=== PATIENT | male | born 1945 | race Caucasian/White ===

== ENCOUNTER → 2017-06-16 | Outpatient (CLI) | payer MEDICARE ==
[~2017-06-16] VITALS: Ht 180.3 cm; Wt 84.1 kg
[~2017-06-16] MED LIST: CHLORHEXIDINE GLUCONATE 2 % 1 PACK (2 CLOTHS) TOPICAL PRN; DO NOT ADM ANY ANTICOAGULANT DRUGS PRN; INSULIN HUMAN REGULAR 1,000 UNITS/10 ML VIAL SQ PRN; LACTATED RINGER'S 1000 ML IV PRN; LIDOCAINE HCL 1% PF 5 ML SYRINGE OTHER ONE; METOPROLOL TARTRATE 25 MG TAB PO PRN; MIDAZOLAM HCL 5 MG/5 ML VIAL IV ONE; POVIDONE IODINE 5% (ANTISEPSIS KIT) 4 APPLICATIONS EACH NARE PRN; PROPOFOL 200 MG/20 ML AMP IV ONE; SODIUM CHLORID 0.9% 500 ML IV PRN
--- NOTE | 2017-06-16 17:10 | PD.PROCEDR ---
GI Procedure PROCEDURE PERFORMED EUS with FNA INDICATION FOR PROCEDURE Pancreatic mass PROCEDURE: The procedure, risks and benefits were discussed with Mr. Swift and informed consent was obtained. Anesthesia sedated him with Diprivan. He was placed in the left lateral decubitus position. Scopic ultrasound: The Pentax videoscope was introduced through the oropharynx and advanced to the second portion of the duodenum FINDINGS: There was a pancreatic body measuring 3 x 2 cm mildly hypoechoic FNA was performed with good return of no vascular involvement noted The pancreatic duct distal to the mass was dilated proximal to the mass was normal No lymphadenopathy noted Gallbladder was unremarkable Bile duct was also within normal limits No pancreatic head lesion ESTIMATED BLOOD LOSS: None SPECIMENS REMOVED: Pancreatic biopsy COMPLICATIONS: None IMPRESSION: Pancreatic body mass PLAN: Await biopsies Follow up in 2 weeks Quincy Avila MD Jun 16, 2017 17:10
[2017-06-16 18:48] VITALS: BP 170/94; PULSE 60; RESP 16; TEMP 97.9; O2SAT 100
--- NOTE | 2017-06-17 10:20 | EKG ---
Date Performed: 06/16/2017 Time Performed: 13:49:00 PTAGE: 72 years EKG: SINUS BRADYCARDIA BORDERLINE ECG NO PREVIOUS TRACING DOCTOR: Long Solis Interpretating Date/Time 06/17/2017 10:18:49
== END ==
LOC: HSDC 13:06
PROVIDERS: ATTEND Internal Medicine Gastroenterology
DX: K86.89 Other specified diseases of pancreas (principal); R93.3 Abnormal findings on diagnostic imaging of other parts of digestive tract; R94.31 Abnormal electrocardiogram [ECG] [EKG]
CPT/HCPCS: 00731; 43242; 88112; 88305; 93005; J7120

== ENCOUNTER 2017-08-01 07:21 | Day surgery (SDC) | payer MEDICARE ==
[~2017-08-01] VITALS: Ht 180.3 cm; Wt 81.8 kg
[2017-08-01 07:38] VITALS: BP 143/75; PULSE 60; RESP 20; TEMP 98; O2SAT 91
[2017-08-01] MEDS ORDERED: SODIUM CHLORIDE 0.9% 1000 ML IV SCH ×2 (08:15→09:00)
[2017-08-01] MEDS ORDERED: CHLORHEXIDINE GLUCONATE 2 % 1 PACK (2 CLOTHS) TOPICAL SCH ×2 (08:15→09:00)
[2017-08-01] MEDS ORDERED: POVIDONE IODINE 5% (ANTISEPSIS KIT) 4 APPLICATIONS EACH NARE SCH ×2 (08:15→09:00)
[2017-08-01] MEDS ORDERED: VANCOMYCIN 1000 MG/NS 250 ML - implanted port/tunneled catheter IV SCH ×4 (08:15→09:00)
[2017-08-01] MEDS ORDERED: ceFAZolin 2 GM PREMIX 50 ML - implanted port/tunneled catheter insertion IV SCH ×2 (08:15→09:00)
[2017-08-01] MEDS ORDERED: MIDAZOLAM HCL 5 MG/5 ML VIAL ONE (08:40)
[2017-08-01] MEDS ORDERED: fentaNYL CITRATE 250 MCG/5 ML AMP ONE (08:40)
[2017-08-01] MEDS ORDERED: LIDOCAINE 1%/EPINEPHrine 1:100,000 SOLN 30 ML VIAL ONE (08:57)
[2017-08-01 09:45] VITALS: BP 102/54; PULSE 60; RESP 18; TEMP 97.6; O2SAT 97
--- NOTE | 2017-08-01 09:51 | PD.RAD ---
Post Procedure Progress Note Pre Procedure Diagnosis: (1) Pancreatic cancer Post Procedure Diagnosis: (1) Pancreatic cancer Procedure Date: Aug 01, 2017 Supervising Radiologist: Varun Carter Proceduralist/Assist: Brandon Farr, RT(R), Nikhil Perez RT(R) Anesthesia: Conscious Sedation Plan of Activity Patient to Unit: ROPU Patient Condition: Good See PACS Report for procedural detail/treatment Varun Carter MD Aug 01, 2017 09:51
--- NOTE | 2017-08-01 09:55 | RADRPT ---
EXAM DATE/TIME: 08/01/2017 08:26 [facility] COMPARISON: No previous studies available for comparison. INDICATIONS : Patient presents with pancreatic cancer in need of port placement for chemotherapy treatment. MEDICAL HISTORY : Skin cancer SURGICAL HISTORY : Cataract sx Dental implants Right knee surgery ENCOUNTER: Initial ACUITY: 2 months PAIN SCORE: 0/10 LOCATION: N/A FLUORO TIME: 0.3 minutes IMAGE SERIES: 0 SEDATION TIME: 30 minutes ACCESS: Right internal jugular vein SEDATION: 1.) 4 mg midazolam (Versed) IV 2.) 200 mcg fentanyl (Sublimaze) IV Prophylactic antibiotics were administered with appropriate pre-procedure timing. Vancomycin within 2 hours of procedure, Ancef (or alternative) within 1 hour of procedure. DEVICE: 1. 8 [place] single lumen Bard Power Port PROCEDURE : 1. Continuous pulse oximetry and EKG monitoring. 2. Intravenous conscious sedation. 3. Ultrasound guidance for venous access. 4. Fluoroscopic guided implantable central venous port placement. The patient was placed supine. The neck was prepped in sterile fashion. Full sterile technique was u sed, including cap, mask, sterile gloves and gown, and a large sterile sheet. Hand hygiene and 2% ch lorhexidine Betadine was utilized per protocol for cutaneous antisepsis with appropriate dry time for site. Sterile gel and sterile probe cover were utilized for ultrasound guidance. The skin and sub cutaneous tissues were infiltrated with local anesthetic solution. Under direct ultrasound guidance, central venous access was accomplished in the targeted vessel. The ultrasound images depicting access guidance were stored and saved to PACS for permanent record. A s ubcutaneous pocket was created using blunt dissection. The port was introduced to the pocket. The c atheter tubing was fed through a subcutaneous tunnel to the venotomy site. The catheter tubing was c ut to a suitable length and then was introduced through a valved Peel-Away sheath and positioned with catheter tubing tip at the cavo-atrial junction level. The pocket incision was closed with subcutic ular Vicryl suture. Steri-Strips were applied. The port was flushed and locked with heparin solutio n per protocol. Sterile dressing was applied to the site. The patient tolerated the procedure well. Conscious sedation was performed with the prescribed dosages and duration as above in the presence of an independent trained radiology nurse to assist in the monitoring of the patient. EKG and oximetry remained stable throughout the procedure. The patient tolerated the procedure well and there were no complications. The patient was sent to post anesthesia recovery in stable condition. CONCLUSION: Uncomplicated ultrasound and fluoroscopic guided implanted central venous port catheter placement as described in detail above. An 8 [place] Power port was placed. Varun Carter MD on August 01, 2017 at 9:52 Board Certified Radiologist. This report was verified electronically.
[2017-08-01 10:00] VITALS: BP 101/60; PULSE 56; RESP 18; O2SAT 95
[2017-08-01 10:30] VITALS: BP 114/58; PULSE 52; RESP 18; O2SAT 94
[2017-08-01 11:00] VITALS: BP 129/83; PULSE 48; RESP 18; O2SAT 94
[2017-08-01 11:30] VITALS: BP 109/64; PULSE 50; RESP 16; O2SAT 94
== END 2017-08-01 11:55 | disposition home or self-care (01) ==
LOC: HROP 07:21 → HRIP 07:25 → HROP 11:55
PROVIDERS: ATTEND Internal Medicine Hematology & Oncology
DX: Z45.2 Encounter for adjustment and management of vascular access device (principal); C25.9 Malignant neoplasm of pancreas, unspecified
CPT/HCPCS: 36561; 76937; 77001; 99152; 99153; C1788; J1642; J2250; J3010; J3370; J7030; J7050